=== PATIENT | female | born 1970 | race Caucasian/White ===

== ENCOUNTER 2017-09-05 08:48 | Emergency (ER) | payer OTHER ==
[~2017-09-05] VITALS: Ht 167.6 cm; Wt 81.7 kg
[~2017-09-05 08:48] MED LIST: MULTI VITAMIN1 EACH PO; TRIAMCINOLONE A80 G2 TOP
[2017-09-05 10:41] VITALS: BP 124/61
== END 2017-09-05 10:42 | disposition home or self-care (01) ==
LOC: M.ERS 08:48
DX: S63.255A Unspecified dislocation of left ring finger, initial encounter (principal); Z88.0 Allergy status to penicillin; W23.0XXA Caught, crushed, jammed, or pinched between moving objects, initial encounter; Y93.89 Activity, other specified; Y92.89 Other specified places as the place of occurrence of the external cause; Y99.8 Other external cause status